=== PATIENT | female | born 1960 | race American Indian/Alaskan Native ===

== ENCOUNTER 2017-09-08 09:18 | Emergency (ER) | payer BC, OTHER ==
[2017-09-08 09:41] LABS: Basophils # (Auto) 0.1 K/mm3 (0.0-0.1); Basophils % (Auto) 0.8 % (0.0-1.8); Eosinophils % (Auto) 0.3 % (0.0-4.3); Hematocrit 47.5 % (30.3-42.9); Hemoglobin 15.6 gm/dl (10.1-14.3); Lymphocytes # (Auto) 2.3 K/mm3 (1.2-5.4); Lymphocytes % (Auto) 34.8 % (13.4-35.0); Mean Corpuscular HGB Conc 33 % (30-34); Mean Corpuscular Hemoglobin 32 pg (28-32); Mean Corpuscular Volume 97 fl (79-97); Monocytes # (Auto) 0.3 K/mm3 (0.0-0.8); Monocytes % (Auto) 5.2 % (0.0-7.3); Platelet Count 260 K/mm3 (140-440); Red Blood Count 4.91 M/mm3 (3.65-5.03); Red Cell Distribution Width 13.1 % (13.2-15.2)
[2017-09-08 09:53] LABS: BUN/Creatinine Ratio 20; Blood Urea Nitrogen 12 mg/dL (7-17); Calcium 9.9 mg/dL (8.4-10.2); Hemolysis Index 7
[2017-09-08 09:55] LABS: Bilirubin,Urine NEG (Negative); Blood,Urine SM (Negative); Color,Urine Yellow (Yellow); Mucus,Urine FEW /HPF; Urobilinogen,Urine < 2.0 mg/dL (<2.0)
[2017-09-08] MEDS ORDERED: NACL 0.9% 1000 ML 1,000 ML IV ONE (12:27)
--- NOTE | 2017-09-08 12:27 | Emergency Department Report ---
Blank Doc - Documentation Documentation: Patient is a 59-year-old [place] female who is presenting with hyperglycemia. Patient ran out of her metformin and glipizide approximately 2-3 days ago. Patient has some increased urination and thirst. She does have some slight dry mouth. Patient only other complaint is some mild blurry vision which she states happens when her blood sugar is elevated. Patient denies any fevers chills nausea vomiting diarrhea abdominal cramps at this time. Patient be moved to a treatment area for IV hydration and will be reassessed.
[2017-09-08] MEDS ORDERED: HumuLIN R IV ONE (12:29)
--- NOTE | 2017-09-08 13:24 | Emergency Department Report ---
ED General Adult HPI - General Chief complaint: Hyperglycemia Stated complaint: BLOOD SUGAR HIGH Time Seen by Provider: 09/08/17 12:16 Source: patient Mode of arrival: Ambulatory Limitations: No Limitations - History of Present Illness Initial comments: This is a 59-year-old female nontoxic, well nourished in appearance, no acute signs of distress presents to the ED for medication refill. Patient stated that she currently takes metformin and glipizide but has run out of the past days. Patient stated due to this condition she stated that she has inscreased thirst and urination. Otherwise the patient denies any symptoms. Patient denies any chest pain, shortness of breath, fever, chills, nausea, vomiting, headache, stiff neck, numbness or tingling. Patient states allergies to codeine with past medical history of hypertension and diabetes. -: days(s) (3) Severity scale (0 -10): 0 Consistency: constant Improves with: none Worsens with: none Associated Symptoms: denies other symptoms. denies: confusion, chest pain, cough, diaphoresis, fever/chills, headaches, loss of appetite, malaise, nausea/ vomiting, rash, seizure, shortness of breath, syncope, weakness Treatments Prior to Arrival: none - Related Data Previous Rx's Medication Instructions Recorded Last Taken Type metFORMIN [Glucophage] 850 mg PO BID #30 tablet 04/06/14 04/10/14 Rx Insulin Glargine [Lantus VIAL] 20 units SUB-Q QHS 30 Days units 04/12/14 Unknown Rx Insulin Glulisine [Apidra] 7 units SUB-Q AC 30 Days units 04/12/14 Unknown Rx Cyclobenzaprine [Flexeril 10 MG 10 mg PO BID PRN #14 tablet 03/23/16 Unknown Rx TAB] Ibuprofen [Motrin 800 MG tab] 800 mg PO Q8HR PRN #24 tablet 03/23/16 Unknown Rx glipiZIDE [Glipizide] 5 mg PO BID #60 tablet 09/08/17 Unknown Rx metFORMIN [Glucophage] 850 mg PO BID #60 tablet 09/08/17 Unknown Rx Allergies Allergy/AdvReac Type Severity Reaction Status Date / Time codeine Allergy Unknown Verified 04/06/14 11:02 ED Review of Systems ROS: Stated complaint: BLOOD SUGAR HIGH Other details as noted in HPI Constitutional: denies: chills, fever Eyes: denies: eye pain, eye discharge, vision change ENT: denies: ear pain, throat pain Respiratory: denies: cough, shortness of breath, wheezing Cardiovascular: denies: chest pain, palpitations Endocrine: no symptoms reported Gastrointestinal: denies: abdominal pain, nausea, diarrhea Genitourinary: denies: urgency, dysuria, discharge Musculoskeletal: denies: back pain, joint swelling, arthralgia Skin: denies: rash, lesions Neurological: denies: headache, weakness, paresthesias Psychiatric: denies: anxiety, depression Hematological/Lymphatic: denies: easy bleeding, easy bruising ED Past Medical Hx - Past Medical History Previous Medical History?: Yes Hx Hypertension: Yes Hx CVA: No Hx Heart Attack/AMI: No Hx Congestive Heart Failure: No Hx Diabetes: Yes Hx Deep Vein Thrombosis: No Hx Pulmonary Embolism: No Hx GERD: No Hx Liver Disease: No Hx Renal Disease: No Hx Sickle Cell Disease: No Hx Arthritis: No Hx Headaches / Migraines: No Hx Seizures: No Hx Kidney Stones: No Hx Psychiatric Treatment: No Hx Asthma: No Hx COPD: No Hx Tuberculosis: No Hx Dementia: No Hx HIV: No - Surgical History Past Surgical History?: No Hx Coronary Stent: No Hx Open Heart Surgery: No Hx Pacemaker: No Hx Internal Defibrillator: No Hx Cholecystectomy: No Hx Appendectomy: No Hx Breast Surgery: No - Social History Smoking Status: Never Smoker Substance Use Type: None - Medications Home Medications: Home Medications Medication Instructions Recorded Confirmed Last Taken Type metFORMIN [Glucophage] 850 mg PO BID #30 tablet 04/06/14 04/10/14 04/10/14 Rx Insulin Glargine [Lantus VIAL] 20 units SUB-Q QHS 30 Days units 04/12/14 Unknown Rx Insulin Glulisine [Apidra] 7 units SUB-Q AC 30 Days units 04/12/14 Unknown Rx Cyclobenzaprine [Flexeril 10 MG 10 mg PO BID PRN #14 tablet 03/23/16 Unknown Rx TAB] Ibuprofen [Motrin 800 MG tab] 800 mg PO Q8HR PRN #24 tablet 03/23/16 Unknown Rx glipiZIDE [Glipizide] 5 mg PO BID #60 tablet 09/08/17 Unknown Rx metFORMIN [Glucophage] 850 mg PO BID #60 tablet 09/08/17 Unknown Rx ED Physical Exam - General Limitations: No Limitations General appearance: alert, in no apparent distress - Head Head exam: Present: atraumatic, normocephalic - Eye Eye exam: Present: normal appearance Pupils: Present: normal accommodation - ENT ENT exam: Present: normal exam, mucous membranes moist - Neck Neck exam: Present: normal inspection, full ROM. Absent: tenderness, meningismus, lymphadenopathy - Respiratory Respiratory exam: Present: normal lung sounds bilaterally. Absent: respiratory distress, wheezes, rales, rhonchi, stridor, chest wall tenderness, accessory muscle use, decreased breath sounds, prolonged expiratory - Cardiovascular Cardiovascular Exam: Present: regular rate, normal rhythm, normal heart sounds. Absent: irregular rhythm, systolic murmur, diastolic murmur, rubs, gallop - GI/Abdominal GI/Abdominal exam: Present: soft, normal bowel sounds. Absent: distended, tenderness, guarding, rebound, rigid, diminished bowel sounds - Rectal Rectal exam: Present: deferred - Extremities Exam Extremities exam: Present: normal inspection, full ROM, normal capillary refill - Back Exam Back exam: Present: normal inspection, full ROM. Absent: tenderness, CVA tenderness (R), CVA tenderness (L), muscle spasm, paraspinal tenderness, vertebral tenderness, rash noted - Neurological Exam Neurological exam: Present: alert, oriented X3, normal gait - Psychiatric Psychiatric exam: Present: normal affect, normal mood - Skin Skin exam: Present: warm, dry, intact, normal color. Absent: rash ED Course Vital Signs 09/08/17 09:23 Temperature 98.4 F Pulse Rate 94 H Respiratory 18 Rate Blood Pressure 142/100 O2 Sat by Pulse 96 Oximetry - Reevaluation(s) Reevaluation #1: 09/08/17 13:28 Follow-up with a primary care doctor in 3-5 days or if symptoms worsen and continue return to emergency room as soon as possible. - Consultations Consultation #1: 09/08/17 13:28 Patient has been consulted with Dr. Cornejo about patient history, physical exam , and labs and examined and screened patient and agrees to ED plan of care and discharge plan of care. ED Medical Decision Making - Lab Data Result diagrams: 09/08/17 09:28 09/08/17 09:28 - Medical Decision Making this is a 56-year-old female that presents with hyperglycemia. Patient is stable and was examined by me and Dr. Cornejo. Patient received 1 L of normal saline and 6 units of insulin IV. Blood sugar reassessed and decreased to 256 prior to discharge. Labs are unremarkable. There was a false-positive test so I referred patient to a mems engineer for a follow-up. Patient is discharged with her medication refill of glipizide 5 mg twice a day and metformin 850 mg twice a day. Patient was referred to Follow-up with a primary care/[employer] doctor in 3-5 days or if symptoms worsen and continue return to emergency room as soon as possible. At time of discharge, the patient does not seem toxic or ill in appearance. No acute signs of distress noted. Patient agrees to discharge treatment plan of care. No further questions noted by the patient. Critical care attestation.: If time is entered above; I have spent that time in minutes in the direct care of this critically ill patient, excluding procedure time. ED Disposition Clinical Impression: Hyperglycemia Disposition: DC-01 TO HOME OR SELFCARE Is pt being admited?: No Does the pt Need Aspirin: No Condition: Stable Instructions: Diabetic Hyperglycemia (ED) Additional Instructions: Follow-up with a primary care/[employer] doctor in 3-5 days or if symptoms worsen and continue return to emergency room as soon as possible. Prescriptions: glipiZIDE [Glipizide] 5 mg PO BID #60 tablet metFORMIN [Glucophage] 850 mg PO BID #60 tablet Referrals: MARLA GRIMALDO MD [Primary Care Provider] - 3-5 Days FRANCISCO REYES MD [Staff Physician] - 3-5 Days [facility] [Outside] - 3-5 Days [facility] [Outside] - 3-5 Days Forms: Work/School Release Form(ED)
[2017-09-08 14:10] VITALS: BP 166/85
== END 2017-09-08 14:08 | disposition home or self-care (01) ==
LOC: ED 09:18
DX: E11.65 Type 2 diabetes mellitus with hyperglycemia (principal); I10 Essential (primary) hypertension; Z79.4 Long term (current) use of insulin; Z88.5 Allergy status to narcotic agent
CPT/HCPCS: 36415; 80048; 81001; 82805; 82962; 84702; 84703; 85025; 96361; 96374; 99284; J7030; J1815

== ENCOUNTER 2017-09-26 08:57 | Emergency (ER) | payer SELFPAY ==
[2017-09-26] MEDS ORDERED: CATAPRES PO ONE (11:43)
[2017-09-26 11:59] VITALS: BP 154/95
--- NOTE | 2017-09-26 12:05 | Emergency Department Report ---
ED General Adult HPI - General Chief complaint: High BP Stated complaint: BLOOD PRESSURE HIGH Time Seen by Provider: 09/26/17 11:15 Source: patient Mode of arrival: Ambulatory Limitations: No Limitations - History of Present Illness Initial comments: This is a 56-year-old female nontoxic, well nourished in appearance, no acute signs of distress presents to the ED with c/o of high blood pressure. Patient stated that she is to be on Norvasc 5 mg daily but has not been taking it for a long time and now has increased blood pressure. They stated that she went for a job interview and had a physical and was stated to her that her blood pressure was 175/125. Patient denies any symptoms. Patient denies any headache , chest pain, shortness of breath, fever, chills, nausea, vomiting, chest pressure the breath. Patient denies abdominal pain or back pain. Patient states allergies to codeine with past medical history of hypertension, diabetes. Severity scale (0 -10): 0 Associated Symptoms: denies other symptoms. denies: confusion, chest pain, cough, diaphoresis, fever/chills, headaches, loss of appetite, malaise, nausea/ vomiting, rash, seizure, shortness of breath, syncope, weakness Treatments Prior to Arrival: none - Related Data Previous Rx's Medication Instructions Recorded Last Taken Type metFORMIN [Glucophage] 850 mg PO BID #30 tablet 04/06/14 04/10/14 Rx Insulin Glargine [Lantus VIAL] 20 units SUB-Q QHS 30 Days units 04/12/14 Unknown Rx Insulin Glulisine [Apidra] 7 units SUB-Q AC 30 Days units 04/12/14 Unknown Rx Cyclobenzaprine [Flexeril 10 MG 10 mg PO BID PRN #14 tablet 03/23/16 Unknown Rx TAB] Ibuprofen [Motrin 800 MG tab] 800 mg PO Q8HR PRN #24 tablet 03/23/16 Unknown Rx glipiZIDE [Glipizide] 5 mg PO BID #60 tablet 09/08/17 Unknown Rx metFORMIN [Glucophage] 850 mg PO BID #60 tablet 09/08/17 Unknown Rx amLODIPine [Norvasc] 5 mg PO DAILY #30 tab 09/26/17 Unknown Rx Allergies Allergy/AdvReac Type Severity Reaction Status Date / Time codeine Allergy Unknown Verified 04/06/14 11:02 ED Review of Systems ROS: Stated complaint: BLOOD PRESSURE HIGH Other details as noted in HPI Constitutional: denies: chills, fever Eyes: denies: eye pain, eye discharge, vision change ENT: denies: ear pain, throat pain Respiratory: denies: cough, shortness of breath, wheezing Cardiovascular: denies: chest pain, palpitations Endocrine: no symptoms reported Gastrointestinal: denies: abdominal pain, nausea, diarrhea Genitourinary: denies: urgency, dysuria, discharge Musculoskeletal: denies: back pain, joint swelling, arthralgia Skin: denies: rash, lesions Neurological: denies: headache, weakness, paresthesias Psychiatric: denies: anxiety, depression Hematological/Lymphatic: denies: easy bleeding, easy bruising ED Past Medical Hx - Past Medical History Previous Medical History?: Yes Hx Hypertension: Yes Hx CVA: No Hx Heart Attack/AMI: No Hx Congestive Heart Failure: No Hx Diabetes: Yes Hx Deep Vein Thrombosis: No Hx Pulmonary Embolism: No Hx GERD: No Hx Liver Disease: No Hx Renal Disease: No Hx Sickle Cell Disease: No Hx Arthritis: No Hx Headaches / Migraines: No Hx Seizures: No Hx Kidney Stones: No Hx Psychiatric Treatment: No Hx Asthma: No Hx COPD: No Hx Tuberculosis: No Hx Dementia: No Hx HIV: No - Surgical History Past Surgical History?: No Hx Coronary Stent: No Hx Open Heart Surgery: No Hx Pacemaker: No Hx Internal Defibrillator: No Hx Cholecystectomy: No Hx Appendectomy: No Hx Breast Surgery: No - Social History Smoking Status: Never Smoker - Medications Home Medications: Home Medications Medication Instructions Recorded Confirmed Last Taken Type metFORMIN [Glucophage] 850 mg PO BID #30 tablet 04/06/14 04/10/14 04/10/14 Rx Insulin Glargine [Lantus VIAL] 20 units SUB-Q QHS 30 Days units 04/12/14 Unknown Rx Insulin Glulisine [Apidra] 7 units SUB-Q AC 30 Days units 04/12/14 Unknown Rx Cyclobenzaprine [Flexeril 10 MG 10 mg PO BID PRN #14 tablet 03/23/16 Unknown Rx TAB] Ibuprofen [Motrin 800 MG tab] 800 mg PO Q8HR PRN #24 tablet 03/23/16 Unknown Rx glipiZIDE [Glipizide] 5 mg PO BID #60 tablet 09/08/17 Unknown Rx metFORMIN [Glucophage] 850 mg PO BID #60 tablet 09/08/17 Unknown Rx amLODIPine [Norvasc] 5 mg PO DAILY #30 tab 09/26/17 Unknown Rx ED Physical Exam - General Limitations: No Limitations General appearance: alert, in no apparent distress - Head Head exam: Present: atraumatic, normocephalic - Eye Eye exam: Present: normal appearance - ENT ENT exam: Present: mucous membranes moist - Neck Neck exam: Present: normal inspection - Respiratory Respiratory exam: Present: normal lung sounds bilaterally. Absent: respiratory distress - Cardiovascular Cardiovascular Exam: Present: regular rate, normal rhythm, normal heart sounds. Absent: irregular rhythm, systolic murmur, diastolic murmur, rubs, gallop - GI/Abdominal GI/Abdominal exam: Present: soft, normal bowel sounds - Extremities Exam Extremities exam: Present: normal inspection - Back Exam Back exam: Present: normal inspection - Neurological Exam Neurological exam: Present: alert, oriented X3 - Psychiatric Psychiatric exam: Present: normal affect, normal mood - Skin Skin exam: Present: warm, dry, intact, normal color. Absent: rash ED Course Vital Signs 09/26/17 09/26/17 09:27 11:58 Temperature 98.3 F Pulse Rate 93 H 75 Respiratory 18 20 Rate Blood Pressure 171/99 Blood Pressure 154/95 [Right] O2 Sat by Pulse 98 97 Oximetry - Reevaluation(s) Reevaluation #1: 09/26/17 12:02 Patient is speaking in full sentences with no signs of distress noted. ED Medical Decision Making - Medical Decision Making This is a 56-year-old female that presents with hypertension. Patient is stable and was examined by me. Patient stated she has a follow-up appointment with a primary care doctor with [facility] on October 07. I will restart patient on Norvasc 5 mg as she stated that is what she takes. Patient blood pressure prior to discharge is at 150/90. Patient was instructed to Follow-up with a primary care doctor in 3-5 days or if symptoms worsen and continue return to emergency room as soon as possible. At time of discharge, the patient does not seem toxic or ill in appearance. No acute signs of distress noted. Patient agrees to discharge treatment plan of care. No further questions noted by the patient. Critical care attestation.: If time is entered above; I have spent that time in minutes in the direct care of this critically ill patient, excluding procedure time. ED Disposition Clinical Impression: Hypertension Qualifiers: Hypertension type: unspecified Qualified Code(s): I10 - Essential (primary) hypertension Disposition: TO HOME OR SELFCARE Is pt being admited?: No Does the pt Need Aspirin: No Condition: Stable Instructions: Hypertension (ED), Amlodipine (By mouth) Additional Instructions: Follow-up with a primary care doctor in 3-5 days or if symptoms worsen and continue return to emergency room as soon as possible. Prescriptions: amLODIPine [Norvasc] 5 mg PO DAILY #30 tab Referrals: PRIMARY CARE, [Primary Care Provider] - 3-5 Days FRANCISCO REYES MD [Staff Physician] - 3-5 Days [facility] [Staff Physician] - 3-5 Days [facility] [Outside] - 3-5 Days [facility] [Outside] - 3-5 Days
== END 2017-09-26 12:12 | disposition home or self-care (01) ==
LOC: ED 08:57
DX: I10 Essential (primary) hypertension (principal); Z88.8 Allergy status to other drugs, medicaments and biological substances; Z79.899 Other long term (current) drug therapy
CPT/HCPCS: 99282

== ENCOUNTER 2018-10-27 13:11 | Emergency (ER) | payer OTHER ==
--- NOTE | 2018-10-27 13:29 | Event Note ---
ED Screening Note Date of service: 10/27/18 Time: 13:26 ED Screening Note: This is a 58 y.o. F. that presents to the ER with SOB and abdominal pain for 2 days. Patient states she also feel heaviness to check. Denies N/V PMH DM, HTN Nonsmoker This initial assessment/diagnostic orders/clinical plan/treatment(s) is/are subject to change based on patients health status, clinical progression and re- assessment by fellow clinical providers in the ED. Further treatment and workup at subsequent clinical providers discretion. Patient/guardian urged not to elope from the ED as their condition may be serious if not clinically assessed and managed. Initial orders include: Labs
[2018-10-27 13:40] LABS: Basophils # (Auto) 0.1 K/mm3 (0.0-0.1); Basophils % (Auto) 0.6 % (0.0-1.8); Eosinophils % (Auto) 0.1 % (0.0-4.3); Hematocrit 47.7 % (30.3-42.9); Hemoglobin 16.2 gm/dl (10.1-14.3); Lymphocytes # (Auto) 1.7 K/mm3 (1.2-5.4); Lymphocytes % (Auto) 17.8 % (13.4-35.0); Mean Corpuscular HGB Conc 34 % (30-34); Mean Corpuscular Volume 99 fl (79-97); Monocytes # (Auto) 0.3 K/mm3 (0.0-0.8); Monocytes % (Auto) 3.2 % (0.0-7.3); Platelet Count 291 K/mm3 (140-440); Red Cell Distribution Width 13.6 % (13.2-15.2)
[2018-10-27 14:02] LABS: Alanine Aminotransferase 13 units/L (7-56); Albumin 4.3 g/dL (3.9-5); BUN/Creatinine Ratio 25; Blood Urea Nitrogen 20 mg/dL (7-17); Calcium 10.5 mg/dL (8.4-10.2); Hemolysis Index 29
[2018-10-27] MEDS ORDERED: NACL 0.9% 1000 ML 1,000 ML IV ONE (14:34)
[2018-10-27] MEDS ORDERED: PROTONIX IV ONE (14:34)
[2018-10-27] MEDS ORDERED: ALUM-MAG HYDROX-SIMETH 200-200-20MG/5ML PO ONE (14:47)
[2018-10-27] MEDS ORDERED: LIDOCAINE VISCOUS 2% PO ONE (14:47)
[2018-10-27] MEDS ORDERED: BENTYL PO ONE (14:47)
--- NOTE | 2018-10-27 14:47 | Emergency Department Report ---
ED General Adult HPI - General Chief complaint: Abdominal Pain Stated complaint: DIABETIC/SOB/STOMACH PAIN Time Seen by Provider: 10/27/18 13:26 Source: patient Mode of arrival: Ambulatory Limitations: No Limitations - History of Present Illness Initial comments: Patient is a 58-year-old female who presents to the emergency room complaints of shortness of breath began 2 days ago. She states she experiences with exertion and rest. The patient states she also has chest heaviness which feels like "food is stopping." She states she has also been having some abdominal cramping and diarrhea. She denies any nausea, vomiting, fever, lower extremity edema, recent long car or plane ride, recent surgery, recent immobilization, hormone use. She states she has experienced these symptoms previously. she has a past medical history of diabetes and is on metformin and glipizide. She also has a history of high blood pressure. - Related Data Previous Rx's Medication Instructions Recorded Last Taken Type metFORMIN [Glucophage] 850 mg PO BID #30 tablet 04/06/14 04/10/14 Rx Insulin Glargine [Lantus VIAL] 20 units SUB-Q QHS 30 Days units 04/12/14 Unknown Rx Insulin Glulisine [Apidra] 7 units SUB-Q AC 30 Days units 04/12/14 Unknown Rx glipiZIDE [Glipizide] 5 mg PO BID #60 tablet 09/08/17 Unknown Rx metFORMIN [Glucophage] 850 mg PO BID #60 tablet 09/08/17 Unknown Rx amLODIPine [Norvasc] 5 mg PO DAILY #30 tab 09/26/17 Unknown Rx Cyclobenzaprine [Flexeril 10 MG 10 mg PO BID PRN #10 tablet 08/19/18 Unknown Rx TAB] Ibuprofen [Motrin 800 MG tab] 800 mg PO Q8HR PRN #20 tablet 08/19/18 Unknown Rx Famotidine [Pepcid] 20 mg PO BID #60 tablet 10/27/18 Unknown Rx Allergies Allergy/AdvReac Type Severity Reaction Status Date / Time codeine Allergy Unknown Verified 08/19/18 09:33 ED Review of Systems ROS: Stated complaint: DIABETIC/SOB/STOMACH PAIN Other details as noted in HPI Comment: All other systems reviewed and negative ED Past Medical Hx - Past Medical History Hx Hypertension: Yes Hx CVA: No Hx Heart Attack/AMI: No Hx Congestive Heart Failure: No Hx Diabetes: Yes Hx Deep Vein Thrombosis: No Hx Pulmonary Embolism: No Hx GERD: No Hx Liver Disease: No Hx Renal Disease: No Hx Sickle Cell Disease: No Hx Arthritis: No Hx Headaches / Migraines: No Hx Seizures: No Hx Kidney Stones: No Hx Psychiatric Treatment: No Hx Asthma: No Hx COPD: No Hx Tuberculosis: No Hx Dementia: No Hx HIV: No - Surgical History Hx Coronary Stent: No Hx Open Heart Surgery: No Hx Pacemaker: No Hx Internal Defibrillator: No Hx Cholecystectomy: No Hx Appendectomy: No Hx Breast Surgery: No - Social History Smoking Status: Never Smoker Substance Use Type: None - Medications Home Medications: Home Medications Medication Instructions Recorded Confirmed Last Taken Type metFORMIN [Glucophage] 850 mg PO BID #30 tablet 04/06/14 04/10/14 04/10/14 Rx Insulin Glargine [Lantus VIAL] 20 units SUB-Q QHS 30 Days units 04/12/14 Unknown Rx Insulin Glulisine [Apidra] 7 units SUB-Q AC 30 Days units 04/12/14 Unknown Rx glipiZIDE [Glipizide] 5 mg PO BID #60 tablet 09/08/17 Unknown Rx metFORMIN [Glucophage] 850 mg PO BID #60 tablet 09/08/17 Unknown Rx amLODIPine [Norvasc] 5 mg PO DAILY #30 tab 09/26/17 Unknown Rx Cyclobenzaprine [Flexeril 10 MG 10 mg PO BID PRN #10 tablet 08/19/18 Unknown Rx TAB] Ibuprofen [Motrin 800 MG tab] 800 mg PO Q8HR PRN #20 tablet 08/19/18 Unknown Rx Famotidine [Pepcid] 20 mg PO BID #60 tablet 10/27/18 Unknown Rx ED Physical Exam - General Limitations: No Limitations General appearance: alert, in no apparent distress - Head Head exam: Present: atraumatic, normocephalic - Eye Eye exam: Present: normal appearance - ENT ENT exam: Present: mucous membranes moist - Respiratory Respiratory exam: Present: normal lung sounds bilaterally. Absent: respiratory distress, wheezes, rales, rhonchi, stridor, chest wall tenderness, accessory muscle use, decreased breath sounds, prolonged expiratory - Cardiovascular Cardiovascular Exam: Present: regular rate, normal rhythm, normal heart sounds. Absent: systolic murmur, diastolic murmur, rubs, gallop - GI/Abdominal GI/Abdominal exam: Present: soft, normal bowel sounds. Absent: distended, tenderness, guarding, rebound, rigid - Neurological Exam Neurological exam: Present: alert, oriented X3 - Psychiatric Psychiatric exam: Present: normal affect, normal mood - Skin Skin exam: Present: warm, dry, intact ED Course Vital Signs 10/27/18 10/27/18 13:28 18:55 Temperature 98.3 F 97.8 F Pulse Rate 100 H 71 Respiratory 18 18 Rate Blood Pressure 112/78 Blood Pressure 111/78 [Left] O2 Sat by Pulse 97 98 Oximetry ED Medical Decision Making - Lab Data Result diagrams: 10/27/18 13:30 10/27/18 13:30 Lab Results 10/27/18 10/27/18 10/27/18 Range/Units 13:30 13:30 13:39 WBC 9.5 (4.5-11.0) K/mm3 RBC 4.80 (3.65-5.03) M/mm3 Hgb 16.2 H (10.1-14.3) gm/dl Hct 47.7 H (30.3-42.9) % MCV 99 H (79-97) fl MCH 34 H (28-32) pg MCHC 34 (30-34) % RDW 13.6 (13.2-15.2) % Plt Count 291 (140-440) K/mm3 Lymph % (Auto) 17.8 (13.4-35.0) % [place] % (Auto) 3.2 (0.0-7.3) % Eos % (Auto) 0.1 (0.0-4.3) % Baso % (Auto) 0.6 (0.0-1.8) % Lymph # 1.7 (1.2-5.4) K/mm3 [place] # 0.3 (0.0-0.8) K/mm3 Eos # 0.0 (0.0-0.4) K/mm3 Baso # 0.1 (0.0-0.1) K/mm3 Seg Neutrophils % 78.3 H (40.0-70.0) % Seg Neutrophils # 7.4 (1.8-7.7) K/mm3 D-Dimer (0-234) ng/mlDDU Sodium 141 (137-145) mmol/L Potassium 5.6 H (3.6-5.0) mmol/L Chloride 100.9 (98-107) mmol/L Carbon Dioxide 21 L (22-30) mmol/L Anion Gap 25 mmol/L BUN 20 H (7-17) mg/dL Creatinine 0.8 (0.7-1.2) mg/dL Estimated GFR > 60 ml/min BUN/Creatinine Ratio 25 % Glucose 477 H (65-100) mg/dL POC Glucose 405 H (70-105) Calcium 10.5 H (8.4-10.2) mg/dL Total Bilirubin 0.70 (0.1-1.2) mg/dL AST 12 (5-40) units/L ALT 13 (7-56) units/L Alkaline Phosphatase 129 (35-129) units/L Troponin T (0.00-0.029) ng/mL NT-Pro-B Natriuret Pep (0-900) pg/mL Total Protein 7.9 (6.3-8.2) g/dL Albumin 4.3 (3.9-5) g/dL Albumin/Globulin Ratio 1.2 % Lipase 30 (13-60) units/L Urine Color (Yellow) Urine Turbidity (Clear) Urine pH (5.0-7.0) Ur Specific [place] (1.003-1.030) Urine Protein (Negative) mg/dL Urine Glucose (UA) (Negative) mg/dL Urine Ketones (Negative) mg/dL Urine Blood (Negative) Urine Nitrite (Negative) Urine Bilirubin (Negative) Urine Urobilinogen (<2.0) mg/dL Ur Leukocyte Esterase (Negative) Urine WBC (Auto) (0.0-6.0) /HPF Urine RBC (Auto) (0.0-6.0) /HPF U Epithel Cells (Auto) (0-13.0) /HPF Urine Mucus /HPF 10/27/18 10/27/18 10/27/18 Range/Units 14:40 14:40 16:20 WBC (4.5-11.0) K/mm3 RBC (3.65-5.03) M/mm3 Hgb (10.1-14.3) gm/dl Hct (30.3-42.9) % MCV (79-97) fl MCH (28-32) pg MCHC (30-34) % RDW (13.2-15.2) % Plt Count (140-440) K/mm3 Lymph % (Auto) (13.4-35.0) % [place] % (Auto) (0.0-7.3) % Eos % (Auto) (0.0-4.3) % Baso % (Auto) (0.0-1.8) % Lymph # (1.2-5.4) K/mm3 [place] # (0.0-0.8) K/mm3 Eos # (0.0-0.4) K/mm3 Baso # (0.0-0.1) K/mm3 Seg Neutrophils % (40.0-70.0) % Seg Neutrophils # (1.8-7.7) K/mm3 D-Dimer 208.66 (0-234) ng/mlDDU Sodium (137-145) mmol/L Potassium (3.6-5.0) mmol/L Chloride (98-107) mmol/L Carbon Dioxide (22-30) mmol/L Anion Gap mmol/L BUN (7-17) mg/dL Creatinine (0.7-1.2) mg/dL Estimated GFR ml/min BUN/Creatinine Ratio % Glucose (65-100) mg/dL POC Glucose (70-105) Calcium (8.4-10.2) mg/dL Total Bilirubin (0.1-1.2) mg/dL AST (5-40) units/L ALT (7-56) units/L Alkaline Phosphatase (35-129) units/L Troponin T < 0.010 (0.00-0.029) ng/mL NT-Pro-B Natriuret Pep 14.87 (0-900) pg/mL Total Protein (6.3-8.2) g/dL Albumin (3.9-5) g/dL Albumin/Globulin Ratio % Lipase (13-60) units/L Urine Color Yellow (Yellow) Urine Turbidity Clear (Clear) Urine pH 5.0 (5.0-7.0) Ur Specific [place] 1.030 (1.003-1.030) Urine Protein <15 mg/dl (Negative) mg/dL Urine Glucose (UA) >=500 (Negative) mg/dL Urine Ketones 80 (Negative) mg/dL Urine Blood Sm (Negative) Urine Nitrite Neg (Negative) Urine Bilirubin Neg (Negative) Urine Urobilinogen < 2.0 (<2.0) mg/dL Ur Leukocyte Esterase Neg (Negative) Urine WBC (Auto) 2.0 (0.0-6.0) /HPF Urine RBC (Auto) 2.0 (0.0-6.0) /HPF U Epithel Cells (Auto) 1.0 (0-13.0) /HPF Urine Mucus Few /HPF 10/27/18 Range/Units 17:49 WBC (4.5-11.0) K/mm3 RBC (3.65-5.03) M/mm3 Hgb (10.1-14.3) gm/dl Hct (30.3-42.9) % MCV (79-97) fl MCH (28-32) pg MCHC (30-34) % RDW (13.2-15.2) % Plt Count (140-440) K/mm3 Lymph % (Auto) (13.4-35.0) % [place] % (Auto) (0.0-7.3) % Eos % (Auto) (0.0-4.3) % Baso % (Auto) (0.0-1.8) % Lymph # (1.2-5.4) K/mm3 [place] # (0.0-0.8) K/mm3 Eos # (0.0-0.4) K/mm3 Baso # (0.0-0.1) K/mm3 Seg Neutrophils % (40.0-70.0) % Seg Neutrophils # (1.8-7.7) K/mm3 D-Dimer (0-234) ng/mlDDU Sodium (137-145) mmol/L Potassium (3.6-5.0) mmol/L Chloride (98-107) mmol/L Carbon Dioxide (22-30) mmol/L Anion Gap mmol/L BUN (7-17) mg/dL Creatinine (0.7-1.2) mg/dL Estimated GFR ml/min BUN/Creatinine Ratio % Glucose (65-100) mg/dL POC Glucose 388 H (70-105) Calcium (8.4-10.2) mg/dL Total Bilirubin (0.1-1.2) mg/dL AST (5-40) units/L ALT (7-56) units/L Alkaline Phosphatase (35-129) units/L Troponin T (0.00-0.029) ng/mL NT-Pro-B Natriuret Pep (0-900) pg/mL Total Protein (6.3-8.2) g/dL Albumin (3.9-5) g/dL Albumin/Globulin Ratio % Lipase (13-60) units/L Urine Color (Yellow) Urine Turbidity (Clear) Urine pH (5.0-7.0) Ur Specific [place] (1.003-1.030) Urine Protein (Negative) mg/dL Urine Glucose (UA) (Negative) mg/dL Urine Ketones (Negative) mg/dL Urine Blood (Negative) Urine Nitrite (Negative) Urine Bilirubin (Negative) Urine Urobilinogen (<2.0) mg/dL Ur Leukocyte Esterase (Negative) Urine WBC (Auto) (0.0-6.0) /HPF Urine RBC (Auto) (0.0-6.0) /HPF U Epithel Cells (Auto) (0-13.0) /HPF Urine Mucus /HPF - Medical Decision Making Patient is a 58-year-old female who presents to the emergency room complaints of shortness of breath began 2 days ago. She states she experiences with exertion and rest. The patient states she also has chest heaviness which feels like "food is stopping." She states she has also been having some abdominal cramping and diarrhea. She denies any nausea, vomiting, fever, lower extremity edema, recent long car or plane ride, recent surgery, recent immobilization, hormone use. She states she has experienced these symptoms previously. she has a past medical history of diabetes and is on metformin and glipizide. She also has a history of high blood pressure. vitals are normal. labs with initial glucose at 477, pt given 1L of fluids and improved to 388. discussed with Dr. Marvel Cornejo who recommended fluids and not to treat with insulin at this time. trop is negati ve, D-dimer is negative. PERC criteria negative. abd XR with chest with no acute process. pt given medications for acid reflux which improved her symptoms. pt given prescription for pepcid. advised pt to please take medication as prescribed. Follow-up with your primary care doctor in the next 2-3 days. It is very important that you follow-up with your primary care doctor to discuss the elevation in your blood glucose and to get better management of your diabetes. please monitor your blood glucose over the next couple of days and return to the emergency room immediately if it becomes too elevated. Return to the emergency room for any new or worsening symptoms. - Differential Diagnosis GERD, PUD, gastritis, ACS, DM Critical care attestation.: If time is entered above; I have spent that time in minutes in the direct care of this critically ill patient, excluding procedure time. ED Disposition Clinical Impression: Hyperglycemia, SOB (shortness of breath), Chest heaviness GERD (gastroesophageal reflux disease) Qualifiers: Esophagitis presence: without esophagitis Qualified Code(s): K21.9 - Gastro- esophageal reflux disease without esophagitis Disposition: TO HOME OR SELFCARE Is pt being admited?: No Does the pt Need Aspirin: No Condition: Stable Instructions: Diet for Ulcers and Gastritis (ED), Gastroesophageal Reflux Disease (ED), Diabetic Hyperglycemia (ED) Additional Instructions: Please take medication as prescribed. Follow-up with your primary care doctor in the next 2-3 days. It is very important that you follow-up with your primary care doctor to discuss the elevation in your blood glucose and to get better management of your diabetes. please monitor your blood glucose over the next couple of days and return to the emergency room immediately if it becomes too elevated. Return to the emergency room for any new or worsening symptoms. Prescriptions: Famotidine [Pepcid] 20 mg PO BID #60 tablet Referrals: ELVA CAI MD [Referring] - 2-3 Days Forms: Work/School Release Form(ED) Time of Disposition: 18:15 Print Language: JAPANESE
--- NOTE | 2018-10-27 16:19 | XRay Report ---
ACUTE ABDOMEN SERIES INDICATION / CLINICAL INFORMATION: chest heaviness, abd cramping. COMPARISON: None available. FINDINGS: Normal bowel gas pattern. No evidence of obstruction or pneumoperitoneum. The accompanying chest x-ra y shows no acute disease. Signer Name: Harpreet Figueroa MD FACStephania Signed: 10/27/2018 4:15 PM Workstation Name: [id number]
[2018-10-27 17:00] LABS: Bilirubin,Urine NEG (Negative); Blood,Urine SM (Negative); Color,Urine Yellow (Yellow); Mucus,Urine FEW /HPF; Protein,Urine <15 mg/dL mg/dL (Negative); Urobilinogen,Urine < 2.0 mg/dL (<2.0)
[2018-10-27 18:57] VITALS: BP 111/78
== END 2018-10-27 18:55 | disposition home or self-care (01) ==
LOC: ED 13:11
DX: E11.65 Type 2 diabetes mellitus with hyperglycemia (principal); R07.89 Other chest pain; K21.9 Gastro-esophageal reflux disease without esophagitis; I10 Essential (primary) hypertension; Z79.899 Other long term (current) drug therapy; Z88.6 Allergy status to analgesic agent; Z79.4 Long term (current) use of insulin
CPT/HCPCS: 36415; 74022; 80053; 81001; 82962; 83690; 83880; 84484; 85025; 85379; 96374; 99284; C9113; J7030

== ENCOUNTER 2019-07-14 21:40 | Inpatient (IN) | payer OTHER ==
[2019-07-14] MEDS ORDERED: SODIUM CHLORIDE 0.9% 1000 ML 1,000 ML IV ONE (23:25)
--- NOTE | 2019-07-14 23:28 | Emergency Department Report ---
ED General Adult HPI - General Chief complaint: Hyperglycemia Stated complaint: POSS HIGH BLOOD SUGAR Time Seen by Provider: 07/14/19 23:18 Source: patient Mode of arrival: Wheelchair Limitations: No Limitations - History of Present Illness Initial comments: 58-year-old female with history of diabetes presents to ED with elevated glucose x1 week. Patient reports she started running low on metformin, so instead of taking it twice a day she was only taken 1 pill daily. Patient reports nausea and vomiting. She denies any fever, cough, shortness of breath. -: week(s) (1) Consistency: constant Improves with: none Worsens with: none Associated Symptoms: nausea/vomiting, weakness. denies: chest pain, cough, fever/chills, shortness of breath - Related Data Previous Rx's Medication Instructions Recorded Last Taken Type metFORMIN [Glucophage] 850 mg PO BID #30 tablet 04/06/14 04/10/14 Rx Insulin Glargine [Lantus VIAL] 20 units SUB-Q QHS 30 Days units 04/12/14 Unknown Rx Insulin Glulisine [Apidra] 7 units SUB-Q AC 30 Days units 04/12/14 Unknown Rx glipiZIDE [Glipizide] 5 mg PO BID #60 tablet 09/08/17 Unknown Rx metFORMIN [Glucophage] 850 mg PO BID #60 tablet 09/08/17 Unknown Rx amLODIPine [Norvasc] 5 mg PO DAILY #30 tab 09/26/17 Unknown Rx Cyclobenzaprine [Flexeril 10 MG 10 mg PO BID PRN #10 tablet 08/19/18 Unknown Rx TAB] Ibuprofen [Motrin 800 MG tab] 800 mg PO Q8HR PRN #20 tablet 08/19/18 Unknown Rx Famotidine [Pepcid] 20 mg PO BID #60 tablet 10/27/18 Unknown Rx Allergies Allergy/AdvReac Type Severity Reaction Status Date / Time codeine Allergy Unknown Verified 08/19/18 09:33 ED Review of Systems ROS: Stated complaint: POSS HIGH BLOOD SUGAR Other details as noted in HPI Comment: All other systems reviewed and negative Constitutional: denies: chills, fever Respiratory: denies: cough, shortness of breath Cardiovascular: denies: chest pain Gastrointestinal: nausea, vomiting. denies: abdominal pain, diarrhea ED Past Medical Hx - Past Medical History Hx Hypertension: Yes Hx CVA: No Hx Heart Attack/AMI: No Hx Congestive Heart Failure: No Hx Diabetes: Yes Hx Deep Vein Thrombosis: No Hx Pulmonary Embolism: No Hx GERD: No Hx Liver Disease: No Hx Renal Disease: No Hx Sickle Cell Disease: No Hx Arthritis: No Hx Headaches / Migraines: No Hx Seizures: No Hx Kidney Stones: No Hx Psychiatric Treatment: No Hx Asthma: No Hx COPD: No Hx Tuberculosis: No Hx Dementia: No Hx HIV: No - Surgical History Hx Coronary Stent: No Hx Open Heart Surgery: No Hx Pacemaker: No Hx Internal Defibrillator: No Hx Cholecystectomy: No Hx Appendectomy: No Hx Breast Surgery: No - Social History Smoking Status: Never Smoker Substance Use Type: None - Medications Home Medications: Home Medications Medication Instructions Recorded Confirmed Last Taken Type metFORMIN [Glucophage] 850 mg PO BID #30 tablet 04/06/14 04/10/14 04/10/14 Rx Insulin Glargine [Lantus VIAL] 20 units SUB-Q QHS 30 Days units 04/12/14 Unknown Rx Insulin Glulisine [Apidra] 7 units SUB-Q AC 30 Days units 04/12/14 Unknown Rx glipiZIDE [Glipizide] 5 mg PO BID #60 tablet 09/08/17 Unknown Rx metFORMIN [Glucophage] 850 mg PO BID #60 tablet 09/08/17 Unknown Rx amLODIPine [Norvasc] 5 mg PO DAILY #30 tab 09/26/17 Unknown Rx Cyclobenzaprine [Flexeril 10 MG 10 mg PO BID PRN #10 tablet 08/19/18 Unknown Rx TAB] Ibuprofen [Motrin 800 MG tab] 800 mg PO Q8HR PRN #20 tablet 08/19/18 Unknown Rx Famotidine [Pepcid] 20 mg PO BID #60 tablet 10/27/18 Unknown Rx ED Physical Exam - General Limitations: No Limitations General appearance: alert, in no apparent distress - Head Head exam: Present: atraumatic, normocephalic - Eye Eye exam: Present: normal appearance, EOMI - ENT ENT exam: Present: mucous membranes dry - Neck Neck exam: Present: normal inspection - Respiratory Respiratory exam: Present: normal lung sounds bilaterally. Absent: respiratory distress - Cardiovascular Cardiovascular Exam: Present: normal rhythm, tachycardia - GI/Abdominal GI/Abdominal exam: Present: soft. Absent: distended, tenderness - Extremities Exam Extremities exam: Present: normal inspection - Neurological Exam Neurological exam: Present: alert, oriented X3 - Psychiatric Psychiatric exam: Present: normal affect, normal mood - Skin Skin exam: Present: warm, dry, intact, normal color ED Course Vital Signs 07/14/19 07/14/19 21:49 23:25 Temperature 97.6 F Pulse Rate 115 H Respiratory 18 20 Rate Blood Pressure 146/99 O2 Sat by Pulse 98 96 Oximetry ED Medical Decision Making - Lab Data Result diagrams: 07/14/19 23:36 07/15/19 03:12 - Medical Decision Making 58-year-old female in DKA. Glucose of 805, bicarb of 12, anion gap of 36, and VBG 7.18. IV fluid boluses given, and patient started on insulin drip. I spoke with hospitalist, Dr. Lama, who will admit the patient for further management. - Differential Diagnosis Hyperglycemia, DKA Critical Care Time: Yes Critical care time in (mins) excluding proc time.: 35 Critical care attestation.: If time is entered above; I have spent that time in minutes in the direct care of this critically ill patient, excluding procedure time. Critical Care Time: 35 min ED Disposition Clinical Impression: DKA (diabetic ketoacidosis) Disposition: OP ADMIT IP TO THIS HOSP Is pt being admited?: Yes Condition: Stable Time of Disposition: 00:44
[2019-07-15 00:16] LABS: Basophils % (Auto) 0.4 % (0.0-1.8); Hematocrit 54.9 % (30.3-42.9); Hemoglobin 17.8 gm/dl (10.1-14.3); Lymphocytes # (Auto) 0.9 K/mm3 (1.2-5.4); Mean Corpuscular HGB Conc 32 % (30-34); Mean Corpuscular Volume 102 fl (79-97); Monocytes # (Auto) 0.2 K/mm3 (0.0-0.8); Monocytes % (Auto) 1.8 % (0.0-7.3); Platelet Count 275 K/mm3 (140-440); Red Blood Count 5.39 M/mm3 (3.65-5.03); Red Cell Distribution Width 13.9 % (13.2-15.2)
[2019-07-15] MEDS ORDERED: SODIUM CHLORIDE 0.9% 1000 ML 1,000 ML IV ONE ×2 (00:29→00:30)
[2019-07-15] MEDS ORDERED: D5W/0.45% NACL/KCL 20 MEQ 20 MEQ/1,000 ML BAG IV SCH (01:00)
[2019-07-15] MEDS: INSULIN REGULAR, HUMAN 100 UNITS in SODIUM CHLORIDE 0.9% 99 ML IV SCH (01:05)
[2019-07-15 01:06] LABS: Bilirubin,Urine NEG (Negative); Blood,Urine NEG (Negative); Color,Urine Straw (Yellow); Mucus,Urine FEW /HPF; Protein,Urine <15 mg/dL mg/dL (Negative); Urobilinogen,Urine < 2.0 mg/dL (<2.0); WBC,Urine < 1.0 /HPF (0.0-6.0)
[2019-07-15] MEDS ORDERED: ACETAMINOPHEN 325 MG TAB PO PRN (01:25)
[2019-07-15] MEDS ORDERED: ONDANSETRON 4 MG/2 ML INJ IV PRN (01:25)
--- NOTE | 2019-07-15 01:28 | History and Physical Report ---
History of Present Illness History of present illness: 58-year-old woman with a history of hypertension, diabetes comes emergency room for evaluation. Over the last 2 weeks she stated that her blood sugar at home has been running high. She has been taking metformin daily instead of twice a day. Patient also complaining of dry mouth, frequent urination, thirst and increase water intake. Patient was found to be in DKA, she will be admitted for further management Review Of Systems: Constitutional: no weight loss, fever, chills Ears, eyes, nose, mouth and throat: no nasal congestion, no nasal discharge, no sinus pressure, blurry vision, diplopia Neck: No neck pain or rigidity. Cardiovascular: No palpitations, chest pain Respiratory: No shortness of breath, cough Gastrointestinal: No hematochezia Genitourinary : no dysuria, frequency Musculoskeletal: no muscle ache , joint pain Integumentary: no rash, no pruritis Neurological: no parathesias, focal weakness Endocrine: no cold or heat intolerance, Hematologic/Lymphatic: no easy bruising, no easy bleeding, no gland swelling Allergic/Immunologic: no urticaria, no angioedema. PAST MEDICAL HISTORY: hypertension, diabetes PAST SURGICAL HISTORY: None SOCIAL HISTORY: Denies alcohol, tobacco, drugs FAMILY HISTORY: Hypertension PUI?: No Medications and Allergies Allergies Allergy/AdvReac Type Severity Reaction Status Date / Time codeine Allergy Unknown Verified 08/19/18 09:33 Home Medications Medication Instructions Recorded Confirmed Last Taken Type metFORMIN [Glucophage] 850 mg PO BID #30 tablet 04/06/14 04/10/14 04/10/14 Rx Insulin Glargine [Lantus VIAL] 20 units SUB-Q QHS 30 Days units 04/12/14 Unknown Rx Insulin Glulisine [Apidra] 7 units SUB-Q AC 30 Days units 04/12/14 Unknown Rx glipiZIDE [Glipizide] 5 mg PO BID #60 tablet 09/08/17 Unknown Rx metFORMIN [Glucophage] 850 mg PO BID #60 tablet 09/08/17 Unknown Rx amLODIPine [Norvasc] 5 mg PO DAILY #30 tab 09/26/17 Unknown Rx Cyclobenzaprine [Flexeril 10 MG 10 mg PO BID PRN #10 tablet 08/19/18 Unknown Rx TAB] Ibuprofen [Motrin 800 MG tab] 800 mg PO Q8HR PRN #20 tablet 08/19/18 Unknown Rx Famotidine [Pepcid] 20 mg PO BID #60 tablet 10/27/18 Unknown Rx Active Meds: Active Medications Acetaminophen (Tylenol) 650 mg PO Q4H PRN PRN Reason: Pain MILD(1-3)/Fever >100.5/ROSALES Enoxaparin Sodium (Enoxaparin) 30 mg SUB-Q QDAY TAN Insulin Human Regular 100 (units/ Sodium Chloride) 100 mls @ 1 mls/hr IV TITR TAN; Protocol Last Admin: 07/15/19 01:05 Dose: 8 units/hr, 8 mls/hr Documented by: Sodium Chloride (Nacl 0.9% 1000 Ml) 1,000 mls @ 999 mls/hr IV BOLUS ONE Stop: 07/15/19 01:29 Last Admin: 07/15/19 00:52 Dose: 999 mls/hr Documented by: Potassium Chloride/Dextrose/Sod Cl (D5w/0.45% Nacl/Kcl 20 Meq) 20 meq in 1,000 mls @ 125 mls/hr IV DIRECT TAN Sodium Chloride (Nacl 0.9% 1000 Ml) 1,000 mls @ 999 mls/hr IV BOLUS ONE Stop: 07/15/19 01:30 Sodium Chloride (Nacl 0.9% 1000 Ml) 1,000 mls @ 150 mls/hr IV DIRECT TAN Ondansetron HCl (Zofran) 4 mg IV Q8H PRN PRN Reason: Nausea And Vomiting Sodium Chloride (Sodium Chloride Flush Syringe 10 Ml) 10 ml IV BID TAN Sodium Chloride (Sodium Chloride Flush Syringe 10 Ml) 10 ml IV PRN PRN PRN Reason: LINE FLUSH Exam - Physical Exam Narrative exam: Gen. appearance: Patient lying in bed, no apparent distress HEENT: Normocephalic, atraumatic, pupils equally round and reactive to light, extraocular movement intact, and no sclericterus,. No JVD or thyromegaly or nodule,neck supple, no carotid bruit ,mucous membranes moist, no exudate or erythema Heart: S1, S2, regular rate and rhythm Lungs: Clear bilaterally, breathing comfortable Abdomen: Positive bowel sounds, nontender, nondistended, no organomegaly Extremity: no edema, cyanosis, clubbing Skin: No rash, nodules, warm, dry Neuro: Cranial nerves II to XII intact, speech is fluent, moves extremities, sensory intact - Constitutional Vitals: Temp Pulse Resp BP Pulse Ox 97.6 F 115 H 20 146/99 96 07/14/19 21:49 07/14/19 21:49 07/14/19 23:25 07/14/19 21:49 07/14/19 23:25 Results - Labs CBC & Chem 7: 07/14/19 23:36 07/15/19 03:12 Labs: Abnormal lab results 07/14/19 07/14/19 07/14/19 Range/Units 21:59 23:36 23:36 WBC 11.1 H (4.5-11.0) K/mm3 RBC 5.39 H (3.65-5.03) M/mm3 Hgb 17.8 H (10.1-14.3) gm/dl Hct 54.9 H (30.3-42.9) % MCV 102 H (79-97) fl MCH 33 H (28-32) pg Lymph % (Auto) 8.0 L (13.4-35.0) % Lymph # 0.9 L (1.2-5.4) K/mm3 Seg Neutrophils # 10.0 H (1.8-7.7) K/mm3 VBG pH (7.320-7.420) Potassium 6.5 H* (3.6-5.0) mmol/L Chloride 96.9 L (98-107) mmol/L Carbon Dioxide 14 L (22-30) mmol/L BUN 41 H (7-17) mg/dL Creatinine 1.3 H (0.7-1.2) mg/dL Glucose 812 H* (65-100) mg/dL POC Glucose 489 H (70-105) Calcium 11.0 H (8.4-10.2) mg/dL 07/14/19 07/14/19 Range/Units 23:36 23:38 WBC (4.5-11.0) K/mm3 RBC (3.65-5.03) M/mm3 Hgb (10.1-14.3) gm/dl Hct (30.3-42.9) % MCV (79-97) fl MCH (28-32) pg Lymph % (Auto) (13.4-35.0) % Lymph # (1.2-5.4) K/mm3 Seg Neutrophils # (1.8-7.7) K/mm3 VBG pH 7.183 L* (7.320-7.420) Potassium (3.6-5.0) mmol/L Chloride (98-107) mmol/L Carbon Dioxide (22-30) mmol/L BUN (7-17) mg/dL Creatinine (0.7-1.2) mg/dL Glucose (65-100) mg/dL POC Glucose > 500 H (70-105) Calcium (8.4-10.2) mg/dL Assessment and Plan Assessment DKA Start DKA protocol with insulin drip, IV fluid Monitor blood sugar, serial chemistry, hemoglobin A1c Acute renal insufficiency Start IV fluid, monitor kidney function Dehydration/metabolic acidosis Continue IV fluid, insulin drip Hypertension Start outpatient medications DVT prophylaxis
[2019-07-15] MEDS ORDERED: SODIUM CHLORIDE 0.9% 1000 ML 1,000 ML IV SCH (01:30)
[2019-07-15 01:47] LABS: Calcium 10.1 mg/dL (8.4-10.2)
[2019-07-15] MEDS ORDERED: D5W/0.45% NACL 1,000 ML IV SCH (02:00)
[2019-07-15] MEDS ORDERED: hydrALAZINE 20 MG/1 ML INJ IV PRN (02:07)
[2019-07-15 04:06] LABS: Calcium 10.4 mg/dL (8.4-10.2)
[2019-07-15 07:09] LABS: BUN/Creatinine Ratio 40; Blood Urea Nitrogen 40 mg/dL (7-17); Calcium 10.2 mg/dL (8.4-10.2); Hemolysis Index 17
--- NOTE | 2019-07-15 07:42 | Event Note ---
Date: 07/15/19 Admitted this morning for DKA, corrected Anion gap is still high, 22 continue insulin drip, repeat bmp in 4 hours still shows high Anion gap. will repeat in 4 hours.
[2019-07-15] MEDS ORDERED: ENOXAPARIN 30 MG/0.3 ML INJ SUB-Q SCH (10:00)
[2019-07-15 10:42] LABS: BUN/Creatinine Ratio 41; Blood Urea Nitrogen 41 mg/dL (7-17); Calcium 10.3 mg/dL (8.4-10.2); Hemolysis Index 35
[2019-07-15] MEDS ORDERED: LIP THERAPY VASELINE TP ONE (13:08)
[2019-07-15] MEDS ORDERED: ENOXAPARIN 40 MG/0.4 ML INJ SUB-Q ONE (15:50)
[2019-07-15] MEDS: ENOXAPARIN 40 MG/0.4 ML INJ SUB-Q SCH (15:55)
[2019-07-15 16:02] LABS: BUN/Creatinine Ratio 49; Blood Urea Nitrogen 39 mg/dL (7-17); Calcium 10.6 mg/dL (8.4-10.2); Hemolysis Index 115
[2019-07-15 19:53] LABS: BUN/Creatinine Ratio 42; Blood Urea Nitrogen 38 mg/dL (7-17); Hemolysis Index 9
[2019-07-15] MEDS ORDERED: D5W/0.45% NACL 1,000 ML IV ONE (22:14)
[2019-07-16] MEDS ORDERED: D5W/0.45% NACL 1,000 ML IV ONE (04:52)
[2019-07-16] MEDS: INSULIN REGULAR, HUMAN 100 UNITS in SODIUM CHLORIDE 0.9% 99 ML IV SCH (05:00)
[2019-07-16 06:29] LABS: BUN/Creatinine Ratio 44; Blood Urea Nitrogen 35 mg/dL (7-17); Calcium 10.2 mg/dL (8.4-10.2); Hemolysis Index 5
--- NOTE | 2019-07-16 09:35 | Event Note ---
Date: 07/16/19 Anion Gap closed, please stop Insulin drip, start long acting insulin and feed patient and down grade from ICU. Thanks. Will sign off.
[2019-07-16] MEDS ORDERED: DEXTROSE 50% IN WATER (25GM) 50 ML SYRINGE IV PRN (09:47)
--- NOTE | 2019-07-16 09:57 | Progress Note ---
Assessment and Plan Assessment and plan: Patient is a 58 yo woman with a history of hypertension and type 2 DM who presents to [facility] ED with high blood sugars. She was found to be in severe acidosis with pH of 7.183 due to DKA. She was treated with IVFs and insulin. Anion gap closed will downgrade to medical floor DKA resolved Metabolic acidosis: treat with Insulin and IVF Uncontrolled Type 2 DM with complications as above, hyperglycemia, now NIDDM: start lantus and SSI, accucheck Hypertension: monitor closely Hypernatremia: treat with free water, monitor bmp closely DVT ppx: sq Lovenox History Interval history: Patient was seen and examined. Follow-up on current diagnosis of DKA. Overnight uneventful as no events directly reported to me. Patient denies any chest pain, shortness breath, nausea/vomiting or severe headaches. Imaging, nursing note, chart, labs and old chart reviewed. Discussed with patient. PUI?: No Hospitalist Physical - Physical exam Narrative exam: Gen: WDWN, NAD, Awake, Alert, Orientated HEENT: NCAT, EOMI, PERRL, OP Clear Neck: supple, no adenopathy, no thyromegaly, no JVD CVS/Heart: RRR, normal S1S2, pulses present bilaterally Chest/Lungs: CTA B, Symmetrical chest expansion, good air entry bilaterally GI/Abdomen: soft, NTND, good bowel sounds, no guarding or rebound /Bladder: no suprapubic tenderness, no CVA or paraspinal tenderness Extermity/Skin: no c/c/e, no obvious rash MSK: FROM x 4 Neuro: CN 2-12 grossly intact, no new focal deficits Psych: calm - Constitutional Vitals: Temp Pulse Resp BP Pulse Ox 97.6 F 82 12 121/79 98 07/14/19 21:49 07/15/19 23:30 07/15/19 23:30 07/15/19 23:30 07/15/19 19:47 Results - Labs CBC & Chem 7: 07/14/19 23:36 07/16/19 03:31 Labs: Laboratory Last Values WBC 11.1 K/mm3 (4.5-11.0) H 07/14/19 23:36 RBC 5.39 M/mm3 (3.65-5.03) H 07/14/19 23:36 Hgb 17.8 gm/dl (10.1-14.3) H 07/14/19 23:36 Hct 54.9 % (30.3-42.9) H 07/14/19 23:36 MCV 102 fl (79-97) H 07/14/19 23:36 MCH 33 pg (28-32) H 07/14/19 23:36 MCHC 32 % (30-34) 07/14/19 23:36 RDW 13.9 % (13.2-15.2) 07/14/19 23:36 Plt Count 275 K/mm3 (140-440) 07/14/19 23:36 Lymph % (Auto) 8.0 % (13.4-35.0) L 07/14/19 23:36 [place] % (Auto) 1.8 % (0.0-7.3) 07/14/19 23:36 Eos % (Auto) 0.0 % (0.0-4.3) 07/14/19 23:36 Baso % (Auto) 0.4 % (0.0-1.8) 07/14/19 23:36 Lymph # 0.9 K/mm3 (1.2-5.4) L 07/14/19 23:36 [place] # 0.2 K/mm3 (0.0-0.8) 07/14/19 23:36 Eos # 0.0 K/mm3 (0.0-0.4) 07/14/19 23:36 Baso # 0.0 K/mm3 (0.0-0.1) 07/14/19 23:36 Seg Neutrophils % Design Drafter 07/14/19 23:36 Seg Neutrophils # 10.0 K/mm3 (1.8-7.7) H 07/14/19 23:36 VBG pH 7.183 (7.320-7.420) L* 07/14/19 23:36 Sodium 149 mmol/L (137-145) H 07/16/19 03:31 Potassium 3.7 mmol/L (3.6-5.0) D 07/16/19 03:31 Chloride 113.3 mmol/L (98-107) H 07/16/19 03:31 Carbon Dioxide 25 mmol/L (22-30) 07/16/19 03:31 Anion Gap 14 mmol/L 07/16/19 03:31 BUN 35 mg/dL (7-17) H 07/16/19 03:31 Creatinine 0.8 mg/dL (0.7-1.2) 07/16/19 03:31 Estimated GFR > 60 ml/min 07/16/19 03:31 BUN/Creatinine Ratio 44 % 07/16/19 03:31 Glucose 247 mg/dL (65-100) H 07/16/19 03:31 POC Glucose 139 (70-105) H 07/16/19 08:53 Hemoglobin A1c 10.9 % (4-6) H 07/15/19 03:12 Calcium 10.2 mg/dL (8.4-10.2) 07/16/19 03:31 Phosphorus 2.00 mg/dL (2.5-4.5) L 07/15/19 09:52 Magnesium 2.60 mg/dL (1.7-2.3) H 07/15/19 09:52 Urine Color Straw (Yellow) 07/15/19 00:29 Urine Turbidity Clear (Clear) 07/15/19 00:29 Urine pH 5.0 (5.0-7.0) 07/15/19 00:29 Ur Specific [place] 1.026 (1.003-1.030) 07/15/19 00:29 Urine Protein <15 mg/dl mg/dL (Negative) 07/15/19 00:29 Urine Glucose (UA) >=500 mg/dL (Negative) 07/15/19 00:29 Urine Ketones 20 mg/dL (Negative) 07/15/19 00:29 Urine Blood Neg (Negative) 07/15/19 00: Urine Nitrite Neg (Negative) 07/15/19 00: Urine Bilirubin Neg (Negative) 07/15/19 00: Urine Urobilinogen < 2.0 mg/dL (<2.0) 07/15/19 00:29 Ur Leukocyte Esterase Neg (Negative) 07/15/19 00:29 Urine WBC (Auto) < 1.0 /HPF (0.0-6.0) 07/15/19 00:29 Urine RBC (Auto) 4.0 /HPF (0.0-6.0) 07/15/19 00:29 U Epithel Cells (Auto) 1.0 /HPF (0-13.0) 07/15/19 00:29 Urine Mucus Few /HPF 07/15/19 00:29 Rios/IV: IV Catheter Type [Left INT / Saline Lock Antecubital] Active Medications - Current Medications Current Medications: Generic Name Dose Route Start Last Admin Trade Name Freq PRN Reason Stop Dose Admin Acetaminophen 650 mg 07/15/19 01:25 Tylenol PO Q4H PRN Pain MILD(1-3)/Fever >100.5/ROSALES Dextrose 50 ml 07/16/19 09:47 D50w (25gm) Syringe IV Q30MIN PRN Hypoglycemia Protocol Enoxaparin Sodium 40 mg 07/15/19 10:00 07/15/19 15:55 Enoxaparin SUB-Q 40 mg QDAY@1000 TAN Administration Hydralazine HCl 5 mg 07/15/19 02:07 Apresoline IV Q6H PRN Hypertension Sodium Chloride 1,000 mls @ 100 mls/hr 07/16/19 10:00 Nacl 0.45% 1000 Ml IV DIRECT [facility] Insulin Glargine 20 units 07/16/19 10:00 Lantus SUB-Q QAMDIAB [facility] Insulin Human Lispro 0 unit 07/16/19 11:30 Humalog SUB-Q ACHS [facility] Protocol Ondansetron HCl 4 mg 07/15/19 01:25 Zofran IV Q8H PRN Nausea And Vomiting Sodium Chloride 10 ml 07/15/19 10:00 07/15/19 15:55 Sodium Chloride Flush Syringe 10 Ml IV 10 ml BID TAN Administration Sodium Chloride 10 ml 07/15/19 01:25 Sodium Chloride Flush Syringe 10 Ml IV PRN PRN LINE FLUSH
[2019-07-16] MEDS ORDERED: SODIUM CHLORIDE 0.9% 1000 ML 1,000 ML IV SCH (10:00)
[2019-07-16] MEDS ORDERED: ENOXAPARIN 40 MG/0.4 ML INJ SUB-Q ONE (11:18)
[2019-07-16] MEDS: ENOXAPARIN 40 MG/0.4 ML INJ SUB-Q SCH (11:23)
[2019-07-16] MEDS: INSULIN GLARGINE 100 UNITS/ML SUB-Q SCH (11:24)
[2019-07-16] MEDS: INSULIN LISPRO 100 UNIT/ML SUB-Q SCH ×2 (11:30→17:05)
[2019-07-16] MEDS ORDERED: INSULIN LISPRO 100 UNIT/ML SUB-Q ONE (11:31)
[2019-07-16] MEDS ORDERED: SODIUM CHLORIDE 0.45% 1000 ML 1,000 ML IV ONE (14:33)
[2019-07-16] MEDS: SODIUM CHLORIDE 0.45% 1000 ML 1,000 ML IV SCH (14:34)
[2019-07-17] MEDS: INSULIN LISPRO 100 UNIT/ML SUB-Q SCH ×3 (00:49→13:52)
[2019-07-17] MEDS: SODIUM CHLORIDE 0.45% 1000 ML 1,000 ML IV SCH ×2 (06:04→09:38)
[2019-07-17] MEDS: INSULIN GLARGINE 100 UNITS/ML SUB-Q SCH (09:38)
[2019-07-17] MEDS: ENOXAPARIN 40 MG/0.4 ML INJ SUB-Q SCH (09:38)
[2019-07-17 12:23] LABS: BUN/Creatinine Ratio 31; Blood Urea Nitrogen 22 mg/dL (7-17); Calcium 9.6 mg/dL (8.4-10.2); Hemolysis Index 14
[2019-07-17] MEDS ORDERED: CYCLOBENZAPRINE 10 MG TAB PO PRN (13:10)
[2019-07-17] MEDS ORDERED: IBUPROFEN 800 MG TAB PO PRN (13:19)
--- NOTE | 2019-07-17 13:20 | Discharge Summary ---
Providers - Providers Date of Admission: 07/15/19 01:25 Date of discharge: 07/17/19 Attending physician: KASSANDRA CERDA Primary care physician: RETREAD TECHNICIAN Hospitalization Condition: Stable Hospital course: Patient is a 58 yo woman with a history of hypertension and type 2 DM who presents to [facility] ED with high blood sugars. She was found to be in severe acidosis with pH of 7.183, On presentation blood glucose was greater than 800, given iv fluid bolus in the ER, admitted to ICU on insulin drip. Patient was weaned off from insulin drip as BG improved and anion gap closed. Patient was continued on iv fluid, consistent carb diet, Placed on Long-acting insulin and SSI. Adjusted long acting insulin dose to better improve BG level, counselled for dietary and insulin regimen compliance. Patient was then discharged home in stable condition with outpt f/u. Discharge diagnosis: DKA, resolved Metabolic acidosis due to DKA, treated with insulin and IVF Uncontrolled diabetes mellitus type 2 Hypertension, stable Hypernatremia/hyperkalemia - resolved Noncompliance Physical exam: Gen: WDWN, NAD, Awake, Alert, Orientated HEENT: NCAT, EOMI, PERRL, OP Clear Neck: supple, no adenopathy, no thyromegaly, no JVD CVS/Heart: RRR, normal S1S2, pulses present bilaterally Chest/Lungs: CTA B, Symmetrical chest expansion, good air entry bilaterally GI/Abdomen: soft, NTND, good bowel sounds, no guarding or rebound /Bladder: no suprapubic tenderness, no CVA or paraspinal tenderness Extermity/Skin: no c/c/e, no obvious rash MSK: FROM x 4 Neuro: CN 2-12 grossly intact, no new focal deficits Psych: calm Disposition: DC/TX-06 HOME UNDER HOME [facility] Time spent for discharge: 34 minutes Core Measure Documentation - Palliative Care Palliative Care/ Comfort Measures: Not Applicable - Core Measures Any of the following diagnoses?: none Exam - Constitutional Vitals: Temp Pulse Resp BP Pulse Ox 97.9 F 63 18 117/61 98 07/17/19 07:43 07/17/19 07:43 07/17/19 07:43 07/17/19 07:43 07/17/19 09:37 Plan Activity: advance as tolerated Weight Bearing Status: Weight Bear as Tolerated Diet: diabetic Special Instructions: record blood sugar diary Follow up with: PRIMARY CARE, [Primary Care Provider] - 3-5 Days KEO BUCIO MD [Staff Physician] - 7 Days Prescriptions: Insulin Glargine [Lantus VIAL] 25 units SUB-Q QHS 30 Days units amLODIPine 5 mg PO DAILY #30 tab Insulin Glulisine [Apidra] 7 units SUB-Q AC 30 Days units metFORMIN [Glucophage] 850 mg PO BID #60 tablet glipiZIDE [Glucotrol] 5 mg PO BID #60 tablet Famotidine [Pepcid] 20 mg PO BID #60 tablet Other Discharge Orders: Glucometer supplies[Amb] Location: None Selected
[2019-07-17 13:37] VITALS: BP 136/81
[2019-07-17] MEDS ORDERED: amLODIPine 5 MG TAB PO SCH (14:00)
[2019-07-17] MEDS ORDERED: glipiZIDE 5 MG TAB PO SCH (14:00)
[2019-07-17] MEDS ORDERED: INSULIN LISPRO 100 UNIT/ML SUB-Q SCH (16:30)
[2019-07-17] MEDS ORDERED: INSULIN GLULISINE SUB-Q SCH (16:30)
[2019-07-17] MEDS ORDERED: FAMOTIDINE 20 MG TAB PO SCH (22:00)
[2019-07-17] MEDS ORDERED: metFORMIN 850 MG TAB PO SCH (22:00)
== END 2019-07-17 15:40 | disposition home or self-care (01) | DRG 638 ==
LOC: ED 21:40 → CC1 07-15 01:25 → 4A 07-16 09:56
PROVIDERS: ADMIT Internal Medicine; ATTEND Internal Medicine
DX: E11.10 Type 2 diabetes mellitus with ketoacidosis without coma (principal); E87.0 Hyperosmolality and hypernatremia; I10 Essential (primary) hypertension; E86.0 Dehydration; E11.65 Type 2 diabetes mellitus with hyperglycemia; E87.5 Hyperkalemia; N28.9 Disorder of kidney and ureter, unspecified; Z88.5 Allergy status to narcotic agent; Z82.49 Family history of ischemic heart disease and other diseases of the circulatory system; Z91.14 Patient's other noncompliance with medication regimen; Z71.3 Dietary counseling and surveillance; Z79.4 Long term (current) use of insulin
CPT/HCPCS: 36415; 80048; 81001; 82805; 82962; 83036; 83735; 84100; 85025; 93005; 93010; G0378; J1650; J1815; J7030

== ENCOUNTER 2021-07-16 13:19 | Emergency (ER) | payer OTHER, SELFPAY ==
--- NOTE | 2021-07-16 14:39 | Emergency Department Report ---
ED General Adult HPI - General Chief complaint: Hypoglycemia Stated complaint: HYPOGLYCEMIA Time Seen by Provider: 07/16/21 14:38 Source: patient, EMS Mode of arrival: Stretcher Limitations: No Limitations - History of Present Illness Initial comments: Patient is a very pleasant 60-year-old female that comes to the emergency room after having a hypoglycemic spell while at work. Her blood sugar at work was 54, and despite eating it did not come up as it usually does, so she called 911. Upon arrival of EMS her blood sugar was 124. Patient has type 2 diabetes. She was diagnosed 10 years ago. She is followed by Dr. Miramontes. She takes glipizide and metformin twice daily and just recently they added a weekly shot. She states that she gets the shot on Saturdays of every week. She states that since she has started getting the shot she has had periods of hypoglycemia usually in the 60s to 70s at 11 to 11:30 in the morning. She showed me her blood glucose monitor and this is actually the case if you look at her trends at the same time every day she tends to have a sugar 60s to 70s. Today it just went lower. Patient takes her glipizide and metformin on her break at work at 9:00. And she gets her injection on Saturdays. Patient denies any fever or chills. Patient denies any abdominal pain. She denies any nausea vomiting diarrhea. She denies any headache. She states that she has been in her usual health. Patient was ambulatory to fast track. Her blood sugar is 110 on my exam per her blood glucose monitor. Patient's other home medications are lisinopril for her hypertension. Patient states her weight is up and down and always has been since has been diagnosed with diabetes. -: Sudden Associated Symptoms: denies other symptoms - Related Data Previous Rx's Medication Instructions Recorded Last Taken Type Famotidine [Pepcid] 20 mg PO BID #60 tablet 07/17/19 Unknown Rx amLODIPine 5 mg PO DAILY #30 tab 07/17/19 Unknown Rx glipiZIDE [Glucotrol] 5 mg PO BID #60 tablet 07/17/19 Unknown Rx metFORMIN [Glucophage] 850 mg PO BID #60 tablet 07/17/19 Unknown Rx Insulin NPH, Human [NovoLIN N] 15 unit SUB-Q BID #1 vial 07/19/19 Unknown Rx Insulin Regular, Human [Novolin R] See Protocol SC AC #1 vial 07/19/19 Unknown R x Allergies Allergy/AdvReac Type Severity Reaction Status Date / Time codeine Allergy Unknown Verified 07/16/21 13:50 ED Review of Systems ROS: Stated complaint: HYPOGLYCEMIA Other details as noted in HPI Comment: All other systems reviewed and negative ED Past Medical Hx - Past Medical History Previous Medical History?: Yes Hx Hypertension: Yes Hx CVA: No Hx Heart Attack/AMI: No Hx Congestive Heart Failure: No Hx Diabetes: Yes Hx Deep Vein Thrombosis: No Hx Pulmonary Embolism: No Hx GERD: No Hx Liver Disease: No Hx Renal Disease: No Hx Sickle Cell Disease: No Hx Arthritis: No Hx Headaches / Migraines: No Hx Seizures: No Hx Kidney Stones: No Hx Psychiatric Treatment: No Hx Asthma: No Hx COPD: No Hx Tuberculosis: No Hx Dementia: No Hx HIV: No - Surgical History Past Surgical History?: No Hx Coronary Stent: No Hx Open Heart Surgery: No Hx Pacemaker: No Hx Internal Defibrillator: No Hx Cholecystectomy: No Hx Appendectomy: No Hx Breast Surgery: No - Family History Family history: no significant - Social History Smoking Status: Never Smoker Substance Use Type: None - Medications Home Medications: Home Medications Medication Instructions Recorded Confirmed Last Taken Type Famotidine [Pepcid] 20 mg PO BID #60 tablet 07/17/19 Unknown Rx amLODIPine 5 mg PO DAILY #30 tab 07/17/19 Unknown Rx glipiZIDE [Glucotrol] 5 mg PO BID #60 tablet 07/17/19 Unknown Rx metFORMIN [Glucophage] 850 mg PO BID #60 tablet 07/17/19 Unknown Rx Insulin NPH, Human [NovoLIN N] 15 unit SUB-Q BID #1 vial 07/19/19 Unknown Rx Insulin Regular, Human [Novolin R] See Protocol SC AC #1 vial 07/19/19 Unknown Rx ED Physical Exam - General Limitations: No Limitations General appearance: alert, in no apparent distress - Head Head exam: Present: atraumatic, normocephalic - Eye Eye exam: Present: normal appearance - ENT ENT exam: Present: mucous membranes moist - Neck Neck exam: Present: normal inspection - Respiratory Respiratory exam: Present: normal lung sounds bilaterally. Absent: respiratory distress - Cardiovascular Cardiovascular Exam: Present: regular rate, normal rhythm. Absent: systolic murmur, diastolic murmur, rubs, gallop - GI/Abdominal GI/Abdominal exam: Present: soft, normal bowel sounds - Extremities Exam Extremities exam: Present: normal inspection - Back Exam Back exam: Present: normal inspection - Neurological Exam Neurological exam: Present: alert, oriented X3 - Psychiatric Psychiatric exam: Present: normal affect, normal mood - Skin Skin exam: Present: warm, dry, intact, normal color. Absent: rash ED Course Vital Signs 07/16/21 13:49 Pulse Rate 90 Blood Pressure 166/95 [Left] O2 Sat by Pulse 98 Oximetry ED Medical Decision Making - Medical Decision Making Vital Signs (72 hours) 07/16/21 13:49 Pulse Rate 90 Blood Pressure 166/95 [Left] O2 Sat by Pulse 98 Oximetry Blood glucose 110 on provider exam. Vital signs normal. Temperature was 98 in triage. Patient denies any symptoms at this time. Her blood sugar has returned to normal. She is already called Dr. Sanders for an appointment. I have advised her to 1 not take that injection until she sees him again. And to to break up the times of which she is taking the glipizide and metformin. May be staggering the 2 of those instead of taking them at the same time will help with this 11:30 AM hypoglycemia. On discharge exam patient has no symptoms she is eating crackers and drinking orange juice. She has called her daughter for a ride home. Patient has been discharged with detailed discharge instructions including follow-up with Dr. Sanders, not taking her weekly injection and staggering her p.o. antidiabetic medications. I told her to increase her complex carb and protein intake today and over the next couple days as the shot wears off. Patient verbalizes understanding Patient discharged home with diet, activity, medication and follow-up instructions. She verbalizes understanding. She will be discharged with her daughter. Critical care attestation.: If time is entered above; I have spent that time in minutes in the direct care of this critically ill patient, excluding procedure time. ED Disposition Clinical Impression: Hypoglycemia Disposition: 01 HOME / SELF CARE / HOMELESS Is pt being admited?: No Does the pt Need Aspirin: No Condition: Stable Instructions: Hypoglycemia Additional Instructions: Follow-up with PCP as soon as possible as we discussed. Increase your protein and complex carbs over the next couple days as your shot wears off. Stay well-hydrated with water Stagger your glipizide and metformin as we discussed Forms: Work/School Release Form(ED) Time of Disposition: 15:07
[2021-07-16 15:44] VITALS: BP 128/88
== END 2021-07-16 15:43 | disposition home or self-care (01) ==
LOC: ED 13:19
DX: E11.649 Type 2 diabetes mellitus with hypoglycemia without coma (principal); I10 Essential (primary) hypertension; E11.9 Type 2 diabetes mellitus without complications; Z88.5 Allergy status to narcotic agent; Z79.899 Other long term (current) drug therapy; Z79.4 Long term (current) use of insulin
CPT/HCPCS: 99283

== ENCOUNTER 2021-10-19 20:27 | Emergency (ER) | payer OTHER ==
[2021-10-19 22:18] VITALS: BP 209/99
== END 2021-10-19 23:00 | disposition left against medical advice (07) ==
LOC: ED 20:27
DX: M79.674 Pain in right toe(s) (principal); Z53.21 Procedure and treatment not carried out due to patient leaving prior to being seen by health care provider